=== PATIENT | female | born 1960 | race Caucasian/White ===

== ENCOUNTER 2019-03-17 06:33 | Day surgery (SDC) | payer MEDICAID ==
[~2019-03-17 06:33] MED LIST: Lactated Ringers 1,000 ML IV SCH; ceFAZolin 2 GM in Premix Bag 1 BAG IV ONE
--- NOTE | 2019-03-17 07:30 | PCM.PREANE ---
Preanesthetic Assessment - Anesthesia/Transfusion/Family Hx Anesthesia History: Prior Anesthesia Without Reaction Family History of Anesthesia Reaction: No Transfusion History: No Prior Transfusion(s) - Review of Systems General: No Symptoms Pulmonary: No Symptoms Cardiovascular: No Symptoms Gastrointestinal: No Symptoms Neurological: No Symptoms Other: Reports: None - Physical Assessment NPO Status Date: 03/16/19 Vital Signs: Last Vital Signs Temp 98.1 F 03/17/19 06:55 Pulse 72 03/17/19 06:55 Resp 16 03/17/19 06:55 BP 130/78 03/17/19 06:55 Pulse Ox 98 03/17/19 06:55 Height: 5 ft 6 in Weight: 107.048 kg ASA Class: 2 Mental Status: Alert & Oriented x3 Airway Class: Mallampati = 2 Dentition: Reports: Missing Tooth/Teeth ROM/Head Extension: Full Lungs: Clear to Auscultation, Normal Respiratory Effort Cardiovascular: Regular Rate, Regular Rhythm - Allergies Allergies/Adverse Reactions: Allergies Allergy/AdvReac Type Severity Reaction Status Date / Time codeine Allergy Nausea and Verified 03/17/19 06:43 Vomiting - Blood Blood Available: No - Anesthesia Plan Pre-Op Medication Ordered: None - Acknowledgements Anesthesia Type Planned: General Anesthesia Pt an Appropriate Candidate for the Planned Anesthesia: Yes Alternatives and Risks of Anesthesia Discussed w Pt/Guardian: Yes Pt/Guardian Understands and Agrees with Anesthesia Plan: Yes Additional Comments: pmh: osteomyelitis from skin ulcer from hammertoe deformity, PLAN: ga/lma PreAnesthesia Questionnaire HEENT History: Reports: Other (See Below) Other HEENT History: wears glasses/contacts, has several broken teeth [employer]IST History: Reports: Musculoskeletal History: Reports: Fracture Neurological History: Reports: Concussion, Other (See Below) Other Neuro History: some sciatic nerve pain- mostly right side Psychiatric History: Reports: Depression Endocrine/Metabolic History: Reports: Obesity/BMI 30+ - Past Surgical History Head Surgeries/Procedures: Reports: None Musculoskeletal Surgical History: Reports: ORIF, Other (See Below) Other Musculoskeletal Surgeries/Procedures:: ORIF left ankle (has plate and screws), bunionectomy right great toe (has screw) - SUBSTANCE USE Smoking Status *Q: Never Smoker Recreational Drug Use History: No - HOME MEDS Home Medications: Home Meds Amoxicillin/Clavulanate K [Augmentin 875-125 MG] 1 tab PO BID 03/15/19 [History] - CURRENT (IN HOUSE) MEDS Current Meds: Current Medications Lactated Ringer's (Ringers, Lactated) 1,000 mls @ 125 mls/hr IV ASDIRECTED [facility] Last Admin: 03/17/19 07:02 Dose: 125 mls/hr Discontinued Medications Cefazolin Sodium/Dextrose 2 gm (/ Premix) 50 mls @ 100 mls/hr IV ONETIME ONE Stop: 03/16/19 21:20
[2019-03-17] MEDS ORDERED: Ondansetron 4 MG/2 ML SDV ONE (07:33)
[2019-03-17] MEDS ORDERED: Propofol 200 MG/20 ML SDV ONE ×2 (07:33→08:44)
[2019-03-17] MEDS ORDERED: fentaNYL 100 MCG/2 ML SDV ONE (07:33)
[2019-03-17] MEDS ORDERED: Lidocaine 1% 20 ML MDV ONE (07:35)
[2019-03-17] MEDS ORDERED: Bupivacaine 0.5% 30 ML SDV ONE (07:35)
[2019-03-17] MEDS ORDERED: ceFAZolin 1 GM Vial ONE (07:51)
[2019-03-17] MEDS ORDERED: Sodium Chloride 0.9% 20 ML ONE (07:51)
--- NOTE | 2019-03-17 09:54 | PCM.POSTAN ---
POST ANESTHESIA ASSESSMENT - MENTAL STATUS Mental Status: Alert, Oriented - VITAL SIGNS Vital Signs: Last Vital Signs Temp 99.5 F 03/17/19 09:35 Pulse 75 03/17/19 09:50 Resp 11 L 03/17/19 09:50 BP 105/63 03/17/19 09:50 Pulse Ox 99 03/17/19 09:50 - RESPIRATORY Respiratory Status: Respiratory Rate WNL, Airway Patent, O2 Saturation Stable - CARDIOVASCULAR CV Status: Pulse Rate WNL, Blood Pressure Stable - GASTROINTESTINAL GI Status: No Symptoms - POST OP HYDRATION Hydration Status: Adequate & Stable
--- NOTE | 2019-03-17 10:07 | PCM.OPNOTE ---
- General Post-Op/Procedure Note Date of Surgery/Procedure: 03/17/19 Operative Procedure(s): partial amputation of third toe right foot Findings: consistent with diagnosis Pre Op Diagnosis: osteomyelitis third toe right foot Post-Op Diagnosis: osteomyelitis third toe right foot Anesthesia Technique: General LMA Primary Surgeon: Chucho Kumar Pathology: distal portion of third toe right foot EBL in mLs: 10 Complications: none Condition: Good Free Text/Narrative:: Intake & Output 03/16/19 03/17/19 03/17/19 22:59 06:59 14:59 Intake Total 1400 Balance 1400 materials: 4-0 vicryl, 4-0 prolene injectables: 10 ml 1% lidocaine plain, 7 ml 0.5% marcaine plain tourniquet time: 43 min
--- NOTE | 2019-03-17 10:42 | PCM48HPAN ---
Post Anesthesia Note - EVALUATION WITHIN 48HRS OF ANESTHETIC Vital Signs in Normal Range: Yes Patient Participated in Evaluation: Yes Respiratory Function Stable: Yes Airway Patent: Yes Cardiovascular Function Stable: Yes Hydration Status Stable: Yes Pain Control Satisfactory: Yes Nausea and Vomiting Control Satisfactory: Yes Mental Status Recovered: Yes Vital Signs: Last Vital Signs Temp 97.5 F 03/17/19 09:55 Pulse 73 03/17/19 09:55 Resp 14 03/17/19 09:55 BP 97/66 03/17/19 09:55 Pulse Ox 99 03/17/19 09:55
--- NOTE | 2019-03-17 10:48 | PN ---
PREOPERATIVE DIAGNOSIS: Osteomyelitis, third toe, right foot. PLANNED PROCEDURE: Amputation of third toe, right foot. The patient is consented for amputation of third toe, right foot, with the understanding that if the proximal portion of the toe is salvageable, this may be a partial amputation, otherwise, a full amputation. ALLERGIES: To codeine. PAST MEDICAL HISTORY: Active problems: Left side sciatica. She also either had or will have a screening for breast cancer. The patient has a past history of ankle fracture on the left as well as the bunion deformities on both feet. CURRENT MEDICATIONS: Augmentin - potassium clavulanate 875/125 mg oral tablet, take 1 tablet twice daily after meals. LABORATORY DATA: White blood cell 7.11, red blood cell 4.52, hemoglobin 13.7, hematocrit 41.4, platelets 268. INR 0.92, PTT 26.4. Hemoglobin A1c 5.5. Sodium 139, potassium 4.2, chloride 104, CO2 of 26.0, glucose random 109, BUN 19, creatinine 0.9, calcium 9.0, globulin was also high at 4.8. Chest x-ray was unremarkable. EKG had sinus rhythm. There was atrial premature SV complex with short RR interval with abnormal R-wave progression, early transition. The patient presents for surgical correction as described above. Patient cleared for surgery by Dr. Eli with no contraindications. All patient questions have been answered. No guarantees have been expressed or implied. Risks and benefits have been discussed with the patient. SONIDO BRITO /[id number] ED
--- NOTE | 2019-03-17 18:50 | CR ---
Foot: Four fluoroscopic spot views of the forefoot were obtained. Side of exam not marked on study. Study shows bunion deformity. Single screw noted at the base of the 1st metatarsal. Study shows questionable resection of the distal phalanx of third toe. Please correlate. Impression: Procedural study as noted above. Diagnostic code #2 MTDD
--- NOTE | 2019-03-17 19:46 | OR ---
SURGEON: Chucho Kumar DPM DATE OF PROCEDURE: 03/17/2019 PRIMARY SURGEON: Chucho Kumar DPM. PREOPERATIVE DIAGNOSIS: Osteomyelitis, 3rd toe, right foot. POSTOPERATIVE DIAGNOSIS: Osteomyelitis, 3rd toe, right foot. OPERATIVE PROCEDURE: Partial amputation of 3rd toe, right foot. FINDINGS: Consistent with diagnosis. HEMOSTASIS: Above ankle pneumatic tourniquet inflated to a pressure of 250 mmHg following an Esmarch bandage exsanguination of the right lower extremity. ANESTHESIA: General as well as 10 mL of 1% lidocaine plain infiltrated proximal to the 3rd toe of the right foot at the beginning of surgery. ESTIMATED BLOOD LOSS: 10 mL. COMPLICATIONS: None. MATERIALS: 4-0 Vicryl, 4-0 Prolene. PATHOLOGY: Distal portion of the 3rd toe, right foot. INJECTABLES: 5 mL of 0.5% Marcaine plain. CONDITION: The patient tolerated the procedure and the anesthesia well with no complications noted and a prompt hyperemic response to all remaining digits of the right lower extremity following deflation of tourniquet. JUSTIFICATION FOR THE PROCEDURE: The patient is a 59-year-old female, who has suffered from a chronic ulcer that probes to bone on the distal portion of the 3rd toe of the right foot. The patient underwent MRI, which also indicated osteomyelitis in the distal phalanx and distal interphalangeal joint with likely compromise of the middle phalanx as well. The patient also has severe hallux valgus deformity and this compounds the severity making healing impossible over the last several months despite repeated debridements and treatment. The patient wishes to proceed to surgery as I have advised is warranted. All patient's questions answered. No guarantees have been expressed or implied. Risks and benefits of surgery have been discussed with the patient. The patient understands that the surgery will be limited to removing what is necessary. She is consented for amputation of the 3rd toe of the right foot; however, I was able to save the majority of the proximal phalanx of the 3rd toe of the right foot, so this was a partial amputation of the 3rd toe, right foot. PROCEDURE IN DETAIL: The patient was brought to the operating room, placed on the operating table in a supine position. Anesthesia was administered. The patient is repositioned as needed so that the heel was at the edge of the operating table. An aseptic scrub and drape were performed about the patient's right lower extremity. Time- out was performed verifying the written consent and identifying the patient and verifying prophylaxis had been administered. Preoperative fluoroscopy was utilized to document the preoperative state and to plan the incision. A racquet mouth type incision was planned and made after Esmarch bandage exsanguination and inflation of the tourniquet to a pressure of 250 mmHg. The incision began with a linear dorsal incision from proximal to distal over the proximal aspect of the 3rd toe, which then expanded medially and laterally and then inferiorly to create a racquet mouth type incision allowing for disarticulation of the remnants of the distal and middle phalanges and exposing the rough and potentially compromised distal portion of the proximal phalanx, which was then resected using a TPS saw. Tendon attachments were resected proximally as appropriate. The area was flushed with normal sterile saline. Postoperative x- rays were taken and closure was performed using 4-0 Vicryl suture for the subcutaneous tissue and 4-0 Prolene suture for the superficial skin and the contours of the skin flap were reapproximated with use of an 11 blade as well as a #15 blade as needed. Upon deflation of the tournequit, there was a prompt hyperemic response to remaining digits and remaining portion of the 3rd digit of the right foot. 5 mm of 0.5% Marcaine plain was infiltrated about the right 3rd toe. Dressings consisted of Betadine- soaked Xeroform gauze, fluff gauze, Kerlix roll, and Brandyn bandage. The patient was transported to the recovery room having tolerated the procedure and anesthesia well. No complications were noted. The patient will be discharged with written instructions. Minimal weightbearing. Postoperative shoe has been affixed to the patient's right foot in recovery, and the patient will be seen in my office in 4 days' time. The patient has my cell phone number in case she needs me at any time. SONIDO / DARYL /[id number]
== END 2019-03-17 11:34 | disposition home or self-care (01) ==
LOC: MW.SDS 06:33
PROVIDERS: ATTEND Podiatrist Foot & Ankle Surgery
DX: M86.671 Other chronic osteomyelitis, right ankle and foot (principal); M20.11 Hallux valgus (acquired), right foot; M54.32 Sciatica, left side; Z88.5 Allergy status to narcotic agent; Z87.891 Personal history of nicotine dependence
CPT/HCPCS: 28160; 76000; 88305; 88311; J0690; J2001; J2405; J2704; J3010; J3490; J7120; 01480

== ENCOUNTER 2019-05-26 08:18 | Day surgery (SDC) | payer MEDICAID ==
[~2019-05-26 08:18] MED LIST changes: +Bupivacaine 0.5% 30 ML SDV ONE
--- NOTE | 2019-05-26 08:44 | PCM.PREANE ---
Preanesthetic Assessment - Anesthesia/Transfusion/Family Hx Anesthesia History: Prior Anesthesia Without Reaction Family History of Anesthesia Reaction: No Transfusion History: No Prior Transfusion(s) Intubation History: Unknown - Review of Systems General: No Symptoms Pulmonary: No Symptoms Cardiovascular: No Symptoms Gastrointestinal: No Symptoms Neurological: No Symptoms Other: Reports: None - Physical Assessment Vital Signs: Last Vital Signs Temp 36.1 C 05/26/19 08:25 Pulse 83 05/26/19 08:25 Resp 18 05/26/19 08:25 BP 122/73 05/26/19 08:25 Pulse Ox 99 05/26/19 08:25 Height: 5 ft 6 in Weight: 107.048 kg ASA Class: 2 Mental Status: Alert & Oriented x3 Airway Class: Mallampati = 2 Dentition: Reports: [place](s) (lost crown on front upper incisor), Missing Tooth/ Teeth (most of the teeth) Thyro-Mental Finger Breadths: 2 Mouth Opening Finger Breadths: 2 ROM/Head Extension: Limited/Partial Lungs: Clear to Auscultation, Normal Respiratory Effort Cardiovascular: Regular Rate, Regular Rhythm - Allergies Allergies/Adverse Reactions: Allergies Allergy/AdvReac Type Severity Reaction Status Date / Time codeine Allergy Nausea and Verified 05/23/19 16:29 Vomiting Sulfa (Sulfonamide Allergy Rash Verified 05/23/19 16:29 Antibiotics) - Blood Blood Available: No - Anesthesia Plan Pre-Op Medication Ordered: None - Acknowledgements Anesthesia Type Planned: General Anesthesia Pt an Appropriate Candidate for the Planned Anesthesia: Yes Alternatives and Risks of Anesthesia Discussed w Pt/Guardian: Yes Pt/Guardian Understands and Agrees with Anesthesia Plan: Yes PreAnesthesia Questionnaire HEENT History: Reports: Other (See Below) Other HEENT History: wears glasses/contacts, 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: Musculoskeletal History: Reports: Fracture Other Musculoskeletal History: hx of fx left ankle Neurological History: Reports: Concussion, Other (See Below) Other Neuro History: some sciatic nerve pain- mostly right side Psychiatric History: Reports: Depression Endocrine/Metabolic History: Reports: Obesity/BMI 30+ (BMI 38.1) - Past Surgical History Head Surgeries/Procedures: Reports: None Musculoskeletal Surgical History: Reports: Amputation, ORIF, Other (See Below) Other Musculoskeletal Surgeries/Procedures:: ORIF left ankle (has plate and screws), bunionectomy right great toe (has screw), - SUBSTANCE USE Smoking Status *Q: Never Smoker Recreational Drug Use History: No - HOME MEDS Home Medications: Home Meds . [No Known Home Meds] 05/23/19 [History] - CURRENT (IN HOUSE) MEDS Current Meds: Current Medications Lactated Ringer's (Ringers, Lactated) 1,000 mls @ 125 mls/hr IV ASDIRECTED [facility]MIN Discontinued Medications Bupivacaine HCl (Marcaine 0.5%) Confirm Administered Dose 30 ml .ROUTE .STK-MED ONE Stop: 05/26/19 07:38 Cefazolin Sodium/Dextrose 2 gm (/ Premix) 50 mls @ 100 mls/hr IV ONETIME ONE Stop: 05/25/19 14:25
[2019-05-26] MEDS ORDERED: Sodium Chloride 0.9% 20 ML ONE (09:01)
[2019-05-26] MEDS ORDERED: Midazolam 1 MG/ML 2 ML SDV ONE (09:01)
[2019-05-26] MEDS ORDERED: Rocuronium 100 MG/10 ML Syringe ONE (09:01)
[2019-05-26] MEDS ORDERED: Propofol 200 MG/20 ML SDV ONE ×2 (09:01→13:48)
[2019-05-26] MEDS ORDERED: Phenylephrine/Normal Saline 100 MCG/ML 10 ML Syringe ONE (09:01)
[2019-05-26] MEDS ORDERED: fentaNYL 250 MCG/5 ML SDV ONE ×3 (09:01→13:52)
[2019-05-26] MEDS ORDERED: ePHEDrine 50 MG/ML SDV ONE (09:01)
[2019-05-26] MEDS ORDERED: Albuterol 0.083% 2.5 MG/3 ML Neb Soln NEB PRN (09:47)
[2019-05-26] MEDS ORDERED: fentaNYL 100 MCG/2 ML SDV IVPUSH PRN (09:47)
[2019-05-26] MEDS ORDERED: ceFAZolin/Dextrose,Iso-Osmotic 2 GM/50 ML Duplex Bag IV ONE (09:47)
[2019-05-26] MEDS ORDERED: Atropine 0.1 MG/ML 10 ML Syringe IVPUSH PRN ×2 (09:47)
[2019-05-26] MEDS ORDERED: Naloxone 0.4 MG/ML Syringe IVPUSH PRN (09:47)
[2019-05-26] MEDS ORDERED: 50% Dextrose in Water 50 ML Syringe IVPUSH PRN (09:47)
[2019-05-26] MEDS ORDERED: EPINEPHrine 1:10,000 1 MG/10 ML Syringe IVPUSH PRN (09:47)
--- NOTE | 2019-05-26 12:02 | PN ---
Preoperative Progress Note. DATE OF SURGERY: May 26, 2019. PLANNED PROCEDURES: 1. Lapidus fusion with bunionectomy, left foot. 2. Capsulotomy of second metatarsophalangeal joint, left foot. 3. Capsulotomy of third metatarsophalangeal joint, left foot. 4. Capsulotomy fourth metatarsophalangeal joint, left foot. 5. Capsulotomy of fifth metatarsophalangeal joint, left foot. 6. Proximal interphalangeal joint arthroplasty of toe 2, left foot, with temporary K-wire fixation. 7. Proximal interphalangeal joint arthroplasty of toe 3, left foot, with temporary K-wire fixation. 8. Proximal interphalangeal joint arthroplasty of toe 4, left foot, with temporary K-wire fixation. 9. Proximal interphalangeal joint arthroplasty of toe 5, left foot, with temporary K-wire fixation. 10.Possible Alfredo osteotomy on the hallux of the left foot. ALLERGIES: Codeine, although the patient has tolerated [place] well previously. PAST MEDICAL HISTORY: Active problems: 1. Depression. 2. Encounter for screening for malignant neoplasm of breast. 3. Preop evaluation. 4. Sciatica of left side. LABORATORY DATA: White blood cell 7.74, red blood cell 4.47, hemoglobin 13.8, hematocrit 41.4, and platelets 284. Sodium 140, potassium 4.3, chloride 105, CO2 of 30.4, random glucose 95, BUN 17, creatinine 0.8, INR 0.93. The patient is cleared for surgery by Dr. Eli. All patient questions have been asked and answered. No guarantees have been expressed or implied. Consent was signed by the patient with all procedures listed and placed in the patient's chart. SONIDO / DARYL /[id number]
[2019-05-26] MEDS ORDERED: ceFAZolin 1 GM Vial ONE (15:06)
[2019-05-26] MEDS ORDERED: Labetalol 100 MG/20 ML MDV ONE (16:01)
[2019-05-26] MEDS ORDERED: Ketorolac 30 MG/ML SDV ONE (16:17)
[2019-05-26] MEDS ORDERED: fentaNYL 100 MCG/2 ML SDV ONE (16:35)
--- NOTE | 2019-05-26 17:13 | CR ---
Left foot: 4 fluoroscopic spot views were obtained of the left toes. Study shows bunion surgery with metatarsal shaving as well as plate and screws across the tarsometatarsal joint of the 1st digit. Longitudinal fixation pins are noted within the 2nd through 5th toes. Fluoroscopy time given as 217 seconds. Impression: 1. Procedural study as noted above. Diagnostic code #2 This report was dictated in [place] Standard Time
[2019-05-26] MEDS ORDERED: Acetaminophen 1,000 MG in Premix Bag 1 BAG IV ONE (17:33)
--- NOTE | 2019-05-26 17:46 | PCM.OPNOTE ---
- General Post-Op/Procedure Note Date of Surgery/Procedure: 05/26/19 Operative Procedure(s): 1. Lapidus fusion with bunionectomy left foot. 2,3,4,5 : capsulotomy metatarsal phalangeal joints 2,3,4,5 left foot. 6,7,8,9: proximal interphalangeal arthroplasties of toes 2,3,4,5 left foot with temporary k-wire fixation. Findings: consistent with diagnoses Pre Op Diagnosis: hallux valgus left foot, capsulitis metatarsal phalangeal joints 2,3,4,5 left foot, hammertoe deformity toes 2,3,4,5 left foot Post-Op Diagnosis: hallux valgus left foot, capsulitis metatarsal phalangeal joints 2,3,4,5 left foot, hammertoe deformity toes 2,3,4,5 left foot Anesthesia Technique: General LMA Primary Surgeon: Chucho Kumar Pathology: none EBL in mLs: 25 Complications: none Condition: Good Free Text/Narrative:: tourniquet time: 120 min, deflated for about 105 min, then reinflated for another 107 min materials: 3-0 vicryl, 4-0 vicryl, 4-0 prolene, 0.035" K-wires x 4, [place] Fixos Headless Compression Screw 4.0 mm x 36 mm [place] Fixons Oblique T-Plate, 37 mm, 4 holes Vitoss 1.2 cc beta tricalcium phosphate synthetic bone graft Variax 2.7 x 22 mm locking screw Variax 2.7 x 16 mm locking screw Variax 2.7 x 22 mm non-locking screw Variax 2.7 x 24 mm non-locking screw
--- NOTE | 2019-05-26 18:44 | PCM.POSTAN ---
POST ANESTHESIA ASSESSMENT - MENTAL STATUS Mental Status: Alert - VITAL SIGNS Vital Signs: Last Vital Signs Temp 36.8 C 05/26/19 17:23 Pulse 77 05/26/19 18:02 Resp 19 05/26/19 18:02 BP 107/52 L 05/26/19 18:02 Pulse Ox 96 05/26/19 18:02 - RESPIRATORY Respiratory Status: Respiratory Rate WNL - CARDIOVASCULAR CV Status: Pulse Rate WNL - GASTROINTESTINAL GI Status: No Symptoms - POST OP HYDRATION Hydration Status: Adequate & Stable
[2019-05-26] MEDS ORDERED: Acetaminophen/HYDROcodone 325-5 MG Tab PO PRN (20:16)
--- NOTE | 2019-05-26 20:44 | OR ---
SURGEON: Chucho Kumar DPM DATE OF PROCEDURE: 05/26/2019 PRIMARY SURGEON: Chucho Kumar DPM. PREOPERATIVE DIAGNOSES: 1. Hallux valgus with bunion deformity, left foot. 2. Capsulitis of the metatarsophalangeal joint 2. 3. Capsulitis of the metatarsophalangeal joint 3. 4. Capsulitis of the metatarsophalangeal joint 4. 5. Capsulitis of the metatarsophalangeal joint 5. 6. Hammertoe deformity to toe 2 of the left foot. 7. Hammertoe deformity to toe 3 of the left foot. 8. Hammertoe deformity to toe 4 of the left foot. 9. Hammertoe deformity to toe 5 of the left foot. POSTOPERATIVE DIAGNOSES: 1. Hallux valgus with bunion deformity, left foot. 2. Capsulitis of the metatarsophalangeal joint 2. 3. Capsulitis of the metatarsophalangeal joint 3. 4. Capsulitis of the metatarsophalangeal joint 4. 5. Capsulitis of the metatarsophalangeal joint 5. 6. Hammertoe deformity to toe 2 of the left foot. 7. Hammertoe deformity to toe 3 of the left foot. 8. Hammertoe deformity to toe 4 of the left foot. 9. Hammertoe deformity to toe 5 of the left foot. PROCEDURES: 1. Lapidus fusion with bunionectomy, left foot. 2. Capsulotomy, metatarsophalangeal joint 2, left foot. 3. Capsulotomy, metatarsophalangeal joint 3, left foot. 4. Capsulotomy, metatarsophalangeal joint 4, left foot. 5. Capsulotomy, metatarsophalangeal joint 5, left foot. 6. Proximal interphalangeal joint arthroplasties of toe 2 of the left foot with temporary K-wire fixation. 7. Proximal interphalangeal joint arthroplasties of toe 3 of the left foot with temporary K-wire fixation. 8. Proximal interphalangeal joint arthroplasties of toe 4 of the left foot with temporary K-wire fixation. 9. Proximal interphalangeal joint arthroplasties of toe 5 of the left foot with temporary K-wire fixation. FINDINGS: Consistent with the diagnoses. ANESTHESIA: General. PATHOLOGY: None. ESTIMATED BLOOD LOSS: 25 mL. COMPLICATIONS: None. MATERIALS: 3-0 Vicryl, 4-0 Vicryl, 4-0 Prolene, 0.035 inch K-wires x4, [place] Fixos headless compression screw 4.0 mm x 36 mm. [place] Fixos oblique T-plate 37 mm with 4 holes. Vitoss 1.2 mL (beta-tricalcium phosphate synthetic bone graft). VariAx 2.7 x 22 mm locking screw. VariAx 2.7 x 16 mm locking screw. VariAx 2.7 x 22 mm nonlocking screw. VariAx 2.7 mm x 24 mm nonlocking screw. HEMOSTASIS: Was an above-ankle pneumatic tourniquet affixed just above the ankle and inflated in 2 parts, 1st time 120 minutes, then deflated for approximately an hour and 45 minutes and then reinflated for 107 minutes. CONDITION: The patient tolerated the procedure and the anesthesia well with vital signs stable and vascular status intact following deflation of the tourniquet both times to the left foot. JUSTIFICATION FOR PROCEDURE: The patient is an established patient of mine who has very severe hallux valgus and associated metatarsophalangeal joint capsulitis and hammertoe deformities on both left and right foot. The condition was so severe that it caused ulceration that led to osteomyelitis of the 3rd toe of the right foot several months ago requiring partial amputation of that toe. In order to prevent a similar occurrence on the left foot, the patient has elected to proceed to surgery as I have suggested to correct the underlying deformities or at least correct them sufficiently enough to prevent further ulceration and breakdown. The patient has had all her questions answered and no guarantees were expressed or implied and the patient consented for all of the procedures performed as well as an additional procedure that was not deemed necessary, which was a proximal Alfredo osteotomy of the left hallux. This procedure was not performed as intraoperatively it appears that adequate reduction of the hallux valgus deformity was achieved without any likely compromise to the lesser toes. PROCEDURE IN DETAIL: Lapidus fusion with bunionectomy, left foot: The patient was brought to the operating room and placed on the operating table and an aseptic scrub and drape was performed about the patient's left lower extremity. After anesthesia was induced, the preoperative x-rays were taken and time-out was performed. All 10 planned procedures were read aloud and confirmed by myself and those present. Also administration of 2 g of Ancef was confirmed and everyone agreed that the correct surgical site had been marked with a marking pen and draped. Esmarch bandage exsanguination was performed and inflation of the tourniquet after the planned incision sites were made about all rays of the left foot. Following inflation of the tourniquet, incision commenced beginning from the medial cuneiform on the dorsal medial aspect over the medial cuneiform bone and extending across the medial cuneiform 1st metatarsal joint and over the shaft of the first metatarsal approximately 1/2 of the length of that bone. A 2nd incision was made over the dorsal medial aspect of the first metatarsophalangeal joint for the bunionectomy. Incision was deepened with care taken to retract any neurovascular structures out of the way and to ligate any small bleeders with Bovie. All muscle and tendinous structures were retracted out of the way and incision was deepened through the layers to the bone and the 1st metatarsocuneiform bone and 1st metatarsophalangeal joints were visualized through each incision. The 1st metatarsocuneiform joint was distracted using a Weinraub retractor and a TPS saw was used to resect the cartilage from both the base of the first metatarsal and the distal aspect of the articulating medial cuneiform. Curette was used to remove all remaining cartilage on both sides. The Weinraub retractor was removed after small drill holes were made with 4.5 wire on a wire hook up driver to increase bleeding on each side of the joint. The site was reduced manually and held in place with temporary K-wire fixation. A Fixos headless screw was selected and was placed from distal dorsal lateral to proximal plantar medial; however, the reduction was judged not to be adequate and this screw was withdrawn and a 2nd Fixos screw was placed after K- wire guidance was availed by drilling from the medial cuneiform proximally across the joint to the 1st metatarsal, and from dorsal to plantar and from lateral to slightly medial. After measurement and after countersinking, a Fixos screw was selected measuring 36 mm in length. This was a 4 mm diameter cannulated partially threaded screw. Reduction was achieved with this screw and attention was directed to the bunion site where bunionectomy was performed after the capsular tissue was released, and then a medial capsulorrhaphy was performed to achieve some reduction of the hallux valgus deformity distally as well. A AdsIt 37 mm 4-hole Fixos oblique T-plate was selected and placed with holes drilled in each of the 4 holes, measured and then fixated with VariAx screws. 1 locking and 1 nonlocking screw was used on each side of the joint. These measurements are all 2.7 mm diameter and the locking screws were 22 mm distally and 16 mm proximally. The nonlocking screws were 22 mm distally and 24 mm proximally in the medial cuneiform. Attention was then directed to the 2nd through 5th rays where procedures 2, 3, 4 and 5 commenced. Procedures 2, 3, 4 and 5; capsulotomy of the metatarsophalangeal joint of the 2nd, 3rd, 4th and 5th rays of the left foot. Using the planned incision lines, linear incision was made on the dorsal aspect of the 2nd, 3rd, 4th and 5th rays beginning just proximal to the metatarsophalangeal joint and extending over the proximal phalanx to the middle phalanx of each toe. The incision was deepened with care taken to Bovie any small bleeders and retract away any vascular structures that were not bovied, and the extensor tendons were isolated on each of these. A Z-plasty tenotomy was performed and the metatarsophalangeal joint was revealed for each of the 2nd, 3rd, 4th and 5th metatarsophalangeal joints and a capsulotomy was performed using a small McGlamry elevator freeing the joints of all capsular attachments. Attention was then directed to the proximal interphalangeal joint of toes 2, 3, 4, and 5 for procedure 6, 7, 8 and 9. Procedures 6, 7, 8 and 9; proximal interphalangeal joint arthroplasty of toes 2, 3, 4 and 5 left foot: Using the incision site from the capsulotomy performed earlier, the head of the proximal phalanx of toes 2, 3, 4, and 5 in sequence were freed of all attachments using Jeff Davis blade and grasped with a small towel clamp and transected with the TPS saw relieving the contracture deformity of each toe. A 0.035 inch K-wire was then drilled from proximal to distal through the middle and distal phalanges of digits 2, 3, 4 and 5 left foot, 1 wire for each. In each case, the wire was then retrograded proximally through the remainder of the proximal phalanx that had not been transected and continuing proximally into the metatarsal head and shaft of each of the corresponding metatarsals 2, 3, 4, and 5. 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 The extensor tendons of toes 2, 3, 4 and 5 were then reapproximated with 4-0 Vicryl suture following copious flushing with normal sterile saline as was done throughout all procedures. Once the tendon of each toe was reapproximated, subcutaneous closure was performed with 4-0 Vicryl suture, and the superficial skin was reapproximated to all sites of all procedures with 4-0 Prolene suture. The tourniquet was deflated during closure. This was the 2nd time the tourniquet was deflated. 1st time was 120 minutes, 2nd time 107 minutes. Betadine-soaked Xeroform gauze was placed over all incision sites and 4 x 4 gauze, fluff gauze, and Kerlix roll were applied as well to secure the inner dressings. A stockinette was then placed over the left lower extremity and cast padding was applied followed by an Ortho-glass posterior splint which was secured with 2 Brandyn bandages. The splint was fashioned so that the toes would be protected by a hard splint extending beyond the length of the toes. The patient tolerated the procedure and the anesthesia well with all vital signs stable and vascular status intact. After each deflation of the tourniquet, there was a prompt hyperemic response to all digits of the left foot. The patient is to be transferred to Recovery for a brief period, and once stable will be discharged home with prescription for Renick for pain, which the patient has tolerated well in the past despite her noted codeine allergy. The patient will also be receiving written instructions and has already received verbal instructions to remain strictly nonweightbearing and to use crutches in order to ambulate as little as possible. The patient has my phone number and will be following up with any questions at any time and is to see me next week at my office. SONIDO / DARYL /[id number] ED
--- NOTE | 2019-05-27 06:59 | PCM48HPAN ---
Post Anesthesia Note - EVALUATION WITHIN 48HRS OF ANESTHETIC Vital Signs in Normal Range: Yes Patient Participated in Evaluation: Yes Respiratory Function Stable: Yes Airway Patent: Yes Cardiovascular Function Stable: Yes Hydration Status Stable: Yes Pain Control Satisfactory: Yes Nausea and Vomiting Control Satisfactory: Yes Mental Status Recovered: Yes Vital Signs: Last Vital Signs Temp 35.5 C 05/26/19 18:22 Pulse 77 05/26/19 18:02 Resp 15 05/26/19 22:07 BP 116/66 05/26/19 22:07 Pulse Ox 95 05/26/19 22:07
== END 2019-05-26 22:15 | disposition home or self-care (01) ==
LOC: MW.SDS 08:18 → MW.ICU 18:49 → MW.SDS 22:15
PROVIDERS: ATTEND Podiatrist Foot & Ankle Surgery
DX: M20.12 Hallux valgus (acquired), left foot (principal); M77.52 Other enthesopathy of left foot and ankle; M20.42 Other hammer toe(s) (acquired), left foot; F32.9 Major depressive disorder, single episode, unspecified; E66.9 Obesity, unspecified; Z88.5 Allergy status to narcotic agent; Z88.2 Allergy status to sulfonamides; Z79.2 Long term (current) use of antibiotics; Z87.891 Personal history of nicotine dependence; Z68.38 Body mass index [BMI] 38.0-38.9, adult
CPT/HCPCS: 28270; 28285; 28297; A9270; J0131; J0330; J0690; J1885; J2250; J2370; J2704; J3010; J3490; J7120; 01480; C1713; C1769

== ENCOUNTER 2021-05-03 13:06 | Emergency (ER) | payer MEDICAID ==
[2021-05-03] MEDS ORDERED: Orphenadrine 60 MG/2 ML Inj IM ONE (13:26)
[2021-05-03] MEDS ORDERED: Acetaminophen/HYDROcodone 325-5 MG Tab PO ONE (13:26)
[2021-05-03] MEDS ORDERED: Ketorolac 30 MG/ML SDV IVPUSH ONE (13:26)
--- NOTE | 2021-05-03 14:07 | EDM.PDOC ---
ED HPI GENERAL MEDICAL PROBLEM - General Chief Complaint: General Stated Complaint: MUSCLE SPASMS Time Seen by Provider: 05/03/21 13:11 Source of Information: Reports: Patient History Limitations: Reports: No Limitations - History of Present Illness INITIAL COMMENTS - FREE TEXT/NARRATIVE: HISTORY AND PHYSICAL: History of present illness: Patient is a 61-year-old female who presents emergency room today with concern of muscle spasm of her neck that she woke up with this morning. Patient states that she slept wrong with her pillow and states that she had a kink in her neck when she woke up. Patient states that she tried to perform some gentle massaging of the neck which exacerbated the spasm on the left side of her neck. Patient states that when she massages the muscle, her symptoms do improve and denies any direct trauma or injury. Patient denies any associated fevers. Patient denies fever, chills, chest pain, shortness of breath, or cough. Denies headache, neck stiff ness, change in vision, syncope, or near syncope. Denies nausea, vomiting, abdominal pain, diarrhea, constipation, or dysuria. Has not noted any blood in urine or stool. Patient has been eating and drinking appropriately. Review of systems: As per history of present illness and below otherwise all systems reviewed and negative. Past medical history: As per history of present illness and as reviewed below otherwise noncontributory. Surgical history: As per history of present illness and as reviewed below otherwise noncontributory. Social history: See social history for further information Family history: As per history of present illness and as reviewed below otherwise noncontributory. Physical exam: General: Patient is alert, oriented, and in no acute distress. Patient sitting comfortably on exam table. Vitals stable and reviewed by me. HEENT: Atraumatic, normocephalic, pupils equal and reactive bilaterally, negative for conjunctival pallor or scleral icterus, mucous membranes moist, throat clear, neck supple, nontender, trachea midline. No drooling or trismus noted. No meningeal signs. No hot potato voice noted. Lungs: Clear to auscultation, breath sounds equal bilaterally, chest nontender. Heart: S1S2, regular rate and rhythm without overt murmur Abdomen: Soft, nondistended, nontender. Negative for masses or hepatosplenomegaly. Negative for costovertebral tenderness. Pelvis: Stable nontender. Genitourinary: Deferred. Rectal: Deferred. Skin: Intact, warm, dry. No lesions or rashes noted. Extremities: No obvious deformity of the complete spine. No step-offs, crepitus, or point tenderness to palpation of the complete spine. Patient does have pain with palpation of the left sided trapezius muscle and the muscle does appear much more firm with palpation on the right side. She does express improvement of her discomfort with massage of the trapezius muscle. Patient does have full range of motion of the complete spine but does have pain with range of motion of her cervical spine. Patient is able to move all extremities without pain or difficulty. Otherwise, atraumatic, negative for cords or calf pain. Neurovascular unremarkable. Neuro: Awake, alert, oriented. Cranial nerves II through XII unremarkable. Cerebellum unremarkable. Motor and sensory unremarkable throughout. Exam nonfocal. Medical Decision Making: Reevaluation of patient does show improvement of her neck discomfort with therapeutics today in the emergency room. Strict return precautions thoroughly discussed with patient. Discussed importance of follow-up with primary care provider. Voices understanding and is agreeable to plan of care. Denies any further questions or concerns at this time. Diagnostics: None Therapeutics: Norflex, Toradol, [place] tab Prescription: Diclofenac, Flexeril Impression: Muscle spasm of the neck Plan: 1. The medication you received today does cause drowsiness, so do not drive for the remaining day. 2. When resting please lay on a flat firm surface. Limit your mobility to prevent muscle stiffness. Get up to ambulate/move around/gentle stretching multiple times throughout the day. May alternate heat and ice to painful areas. 3. Tylenol as needed for back pain. Otherwise, take the prescribed Flexeril and diclofenac as directed. Diclofenac as an anti-inflammatory medication so do not take any additional NSAIDs with this medication, such as naproxen, ibuprofen, or Aleve. Flexeril, this medication may cause drowsiness, so do not take it while driving or needing to be functioning outside of the home. Your medication has been sent to [place] [facility]. 4. Follow-up with your primary care provider as discussed. Return to the ED as needed and as discussed. Definitive disposition and diagnosis as appropriate pending reevaluation and review of above. 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: Musculoskeletal History: Reports: Fracture Other Musculoskeletal History: hx of fx left ankle Neurological History: Reports: Concussion, Other (See Below) Other Neuro History: some sciatic nerve pain- mostly right side Psychiatric History: Reports: Depression Endocrine/Metabolic History: Reports: Obesity/BMI 30+ - Past Surgical History Head Surgeries/Procedures: Reports: None Musculoskeletal Surgical History: Reports: Amputation, ORIF, Other (See Below) Other Musculoskeletal Surgeries/Procedures:: ORIF left ankle (has plate and screws), bunionectomy right great toe (has screw), Social & Family History - Family History Family Medical History: No Pertinent Family History - Tobacco Use Tobacco Use Status *Q: Never Tobacco User - Caffeine Use Caffeine Use: Reports: Energy Drinks - Recreational Drug Use Recreational Drug Use: Yes Recreational Drug Type: Reports: Marijuana/Hashish ED ROS GENERAL - Review of Systems Review Of Systems: Comprehensive ROS is negative, except as noted in HPI. ED EXAM, GENERAL - Physical Exam Exam: See Below (See dictation) Course - Vital Signs Last Recorded V/S: Last Vital Signs Temp 97.9 F 05/03/21 13:22 Pulse 81 05/03/21 13:22 Resp 20 05/03/21 13:22 BP 158/86 H 05/03/21 13:22 Pulse Ox 98 05/03/21 13:22 - Orders/Labs/Meds Meds: Medications Discontinued Medications Generic Name Dose Route Start Last Admin Trade Name Freq PRN Reason Stop Dose Admin Hydrocodone Bitart/Acetaminophen 1 tab 05/03/21 13:26 05/03/21 13:46 Acetaminophen/Hydrocodone 325-5 Mg Tab PO 05/03/21 13:27 1 tab ONETIME ONE Administration Ketorolac Tromethamine 30 mg 05/03/21 13:26 05/03/21 13:47 Ketorolac 30 Mg/Ml Sdv IVPUSH 05/03/21 13:27 30 mg ONETIME ONE Administration Orphenadrine Citrate 60 mg 05/03/21 13:26 05/03/21 13:47 Orphenadrine 60 Mg/2 Ml Inj IM 05/03/21 13:27 60 mg ONETIME ONE Administration Departure - Departure Time of Disposition: 14:06 Disposition: Home, Self-Care 01 Clinical Impression: Muscle spasms of neck - Discharge Information Prescriptions: Cyclobenzaprine [Flexeril] 10 mg PO TID PRN #9 tab PRN Reason: Spasms Diclofenac Sodium [Voltaren] 75 mg PO BIDMEALS PRN #15 tab.cr PRN Reason: Pain Instructions: Muscle Cramps and Spasms, [id number] Referrals: PCP,None [Primary Care Provider] - Forms: ED Department Discharge Additional Instructions: The following information is given to patients seen in the emergency department who are being discharged to home. This information is to outline your options for follow-up care. We provide all patients seen in our emergency department with a follow-up referral. The need for follow-up, as well as the timing and circumstances, are variable depending upon the specifics of your emergency department visit. If you don't have a primary care physician on staff, we will provide you with a referral. We always advise you to contact your personal physician following an emergency department visit to inform them of the circumstance of the visit and for follow-up with them and/or the need for any referrals to a consulting specialist. The emergency department will also refer you to a specialist when appropriate. This referral assures that you have the opportunity for follow-up care with a specialist. All of these measure are taken in an effort to provide you with optimal care, which includes your follow-up. Under all circumstances we always encourage you to contact your private physician who remains a resource for coordinating your care. When calling for follow-up care, please make the office aware that this follow-up is from your recent emergency room visit. If for any reason you are refused follow-up, please contact the [facility] Department at and asked to speak to the emergency department charge nurse. [facility] [address] [place] [address] [facility] [address] [place] [address] 1. The medication you received today does cause drowsiness, so do not drive for the remaining day. 2. When resting please lay on a flat firm surface. Limit your mobility to prevent muscle stiffness. Get up to ambulate/move around/gentle stretching multiple times throughout the day. May alternate heat and ice to painful areas. 3. Tylenol as needed for back pain. Otherwise, take the prescribed Flexeril and diclofenac as directed. Diclofenac as an anti-inflammatory medication so do not take any additional NSAIDs with this medication, such as naproxen, ibuprofen, or Aleve. Flexeril, this medication may cause drowsiness, so do not take it while driving or needing to be functioning outside of the home. Your medication has been sent to [place] [facility]. 4. Follow-up with your primary care provider as discussed. Return to the ED as needed and as discussed. Sepsis Event Note (ED) - Evaluation Sepsis Screening Result: No Definite Risk - Focused Exam Vital Signs: Vital Signs Temp Pulse Resp BP Pulse Ox 05/03/21 13:22 97.9 F 81 20 158/86 H 98
== END 2021-05-03 14:18 | disposition home or self-care (01) ==
LOC: MW.ED 13:06
DX: M62.838 Other muscle spasm (principal); E66.9 Obesity, unspecified; Z68.37 Body mass index [BMI] 37.0-37.9, adult; Z88.5 Allergy status to narcotic agent; Z88.2 Allergy status to sulfonamides
CPT/HCPCS: 96372; 96374; 99283; A9270; J1885; J2360; 99284